=== PATIENT | male | born 1975 | race Hispanic/Latino ===

== ENCOUNTER → 2024-03-08 | Day surgery (SDC) | payer OTHER ==
[~2024-03-08] MED LIST: FENTANYL CITRATE/PF 100MCG/2 ML INJ ONE; LIDOCAINE HCL 2% LOCAL INJ 5 ML SDV VIAL INJ ONE; MAGNESIUM200 MG PO; MIDAZOLAM HCL 2 MG/2 ML VIAL ONE; PROPOFOL IV EMULSION 10 MG/ML 20 ML VIAL ONE; PROTONIX20 MG PO
[2024-03-08] MEDS: LACTATED RINGER'S 1,000 ML ONE (12:49)
[2024-03-08 14:55] VITALS: BP 122/78; PULSE 78; RESP 16; O2SAT 99
== END | disposition home or self-care (01) ==
LOC: OR 11:14
PROVIDERS: ATTEND Internal Medicine Gastroenterology
DX: K21.9 Gastro-esophageal reflux disease without esophagitis (principal); K31.7 Polyp of stomach and duodenum; K29.70 Gastritis, unspecified, without bleeding; K52.9 Noninfective gastroenteritis and colitis, unspecified; K31.89 Other diseases of stomach and duodenum; K44.9 Diaphragmatic hernia without obstruction or gangrene; K59.00 Constipation, unspecified; K64.1 Second degree hemorrhoids; I49.3 Ventricular premature depolarization; R07.89 Other chest pain; Z01.810 Encounter for preprocedural cardiovascular examination
CPT/HCPCS: 43239; 43251; 45380; 93005; J2001; J2250; J2704; J3010; J7121